=== PATIENT | male | born 1955 | race Caucasian/White ===

== ENCOUNTER → 2022-10-13 | Outpatient (CLI) | payer SELFPAY, OTHER ==
--- NOTE | 2022-10-13 15:24 | MRI_ITS ---
STUDY: MRI RIGHT HIP REASON FOR EXAM: Male, 67 years old. HIP PAIN TECHNIQUE: Standardized fat and water weighted pulse sequences were obtained in all 3 orthogonal planes. COMPARISON: None. FINDINGS: There is moderate articular narrowing of the hip joint, with greater than 50% loss of the hyaline cartilage. There is moderate joint effusion. 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 There is tearing of the superior and anterior labrum. There is marrow edema the femoral head and neck, series 5 images through . Normal gluteus minimus, medius and iliopsoas tendons and distal insertions. There is no trochanteric, iliopsoas or iliopectineal bursitis. Normal superior and inferior pubic rami. Normal pubic symphysis. Normal ischial tuberosity. Normal origin of the hamstring tendons. Normal visualized iliac wing, sacroiliac joint, and sacral ala. Normal visualized soft tissue structures of the pelvis. MRI/Lower Ext Joint Only (Routine) IMPRESSION: Degenerative change with stress or insufficiency fracture of the femoral head and neck. Electronically Signed: Ben Mosqueda MD at 19:29 EST ,
--- NOTE | 2022-10-13 15:28 | MRI_ITS ---
STUDY: MRI LUMBAR SPINE WITHOUT CONTRAST REASON FOR EXAM: Male, 67 years old. LBP RADIATING DOWN RIGHT LEG TECHNIQUE: Standardized fat and water weighted pulse sequences were obtained in the sagittal and axial planes. COMPARISON: None FINDINGS: T12-L1: Normal endplates. Normal disc height, hydration and morphology. Normal bilateral facet joints. Normal central canal and bilateral lateral recesses. Normal bilateral intervertebral neural foramina. Normal lumbar lordosis. There is no substantial scoliosis. Normal conus medullaris that terminates at T12-L1 L1-2: Normal endplates. Normal disc height, desiccation and mild annular bulge. Normal bilateral facet joints. Normal central canal and bilateral lateral recesses. Mild to moderate bilateral neural foraminal stenosis. L2-3: Normal endplates. Normal disc height, hydration and minor annular bulge. Facet arthropathy and thickening of ligamenta flava.. Normal central canal and bilateral lateral recesses. Mild to moderate bilateral neural foraminal stenosis L3-4: Normal endplates. Normal disc height, desiccation and minor annular bulge.. Facet arthropathy more pronounced on the right. Normal central canal and bilateral lateral recesses. Severe right neural foraminal stenosis and moderate narrowing on the left L4-5: Narrowed disc space with desiccation of the disc and minor annular bulge. Facet arthropathy and thickening of ligamenta flava. Normal central canal and mild right lateral recess and moderate left lateral recess stenosis. Moderate left neural foraminal stenosis and more severe on the right exaggerated by shortened pedicles L5-S1: Normal endplates. Normal disc height, desiccation and tiny central disc protrusion.. Bilateral facet arthropathy. Normal central canal and bilateral lateral recesses. Normal bilateral intervertebral neural foramina. Normal visualized sacral ala. Normal visualized paraspinous soft tissue structures. MRI/Spine Lumbar (Routine) IMPRESSION: No evidence for acute fracture or other significant bony pathology.. Spondylosis and multilevel spinal stenosis secondary to disc disease and facet arthropathy most severe at L3-4 and L4-5 on the right. Findings as above Electronically Signed: Allen Melo MD at 19:17 EST ,
--- NOTE | 2022-10-13 16:20 | RAD_ITS ---
STUDY: X-RAY - ORBITS REASON FOR EXAM: Male, 67 years old. HX METAL TO EYE; PRE MRI TECHNIQUE: 2 view(s) of the orbits were obtained. COMPARISON: None. FINDINGS: Normal bilateral orbits without a metallic orbital foreign body. Normal visualized facial bones. Normal paranasal sinuses. The soft tissue structures are unremarkable. RAD/Orbits for Foreign Body IMPRESSION: No demonstrated metallic orbital foreign body. The patient is cleared for an MRI examination. Electronically Signed: Allen Melo MD at 16:34 EST ,
== END | disposition home or self-care (01) ==
LOC: MRI 15:12
DX: M99.03 Segmental and somatic dysfunction of lumbar region (principal); M99.04 Segmental and somatic dysfunction of sacral region
CPT/HCPCS: 70030; 72148; 73721